=== PATIENT | male | born 1975 | race Caucasian/White ===

== ENCOUNTER 2024-03-06 11:17 | Emergency (ER) | payer BC, SELFPAY ==
[2024-03-06 11:34] VITALS: BP 129/81
[2024-03-06 12:04] LABS: % Basophils 0.2 % (0-2); % Eosinophils 0.2 % (0-6); % Immature Granulocytes 0.3 % (0-0.5); % Neutrophils 92.3 % (42.2-75.2); Absolute Lymphocytes 0.2 10^3/uL (1.2-3.4); Absolute Monocytes 0.2 10^3/uL (0.1-0.6); Absolute Neutrophils 5.5 10^3/uL (1.4-6.5); Hematocrit 44.4 % (39.0-52.0); Hemoglobin 15.3 g/dL (13.0-18.0); Mean Corp Hgb Conc. 34.5 g/dL (33.0-37.0); Mean Corpuscular Volume 92.9 fL (80.0-94.0); Mean Platelet Volume 10.7 fL (7.4-10.4); Nucleated Red Blood Cells % 0 % (-); Platelet Count 165 10^3/uL (130-400); Red Blood Cell Count 4.78 10^6/uL (4.70-6.10)
[2024-03-06 12:19] LABS: ALT (SGPT) 37 U/L (0-50); AST (SGOT) 56 U/L (17-59); Albumin 4.8 g/dl (3.5-5.0); Alkaline Phosphatase 56 U/L (38-126); Blood Urea Nitrogen 17 mg/dl (9-20); Calcium 9.5 mg/dl (8.4-10.2); Carbon Dioxide 19 mmol/L (22-30); Chloride 106 mmol/L (98-107); Glucose 154 mg/dl (70-99); Potassium 4.2 mmol/L (3.5-5.1); Sodium 137 mmol/L (135-145); Total Bilirubin 0.5 mg/dl (0.2-1.3); Total Protein 7.7 g/dl (6.3-8.2); eGFR > 60.00
--- NOTE | 2024-03-06 13:58 | ED.GENMED ---
History of Present Illness
General
Chief Complaint: Fever
Time Seen by Provider: 03/06/24 13:58
History of Present Illness
History of Present Illness:
TIME OF INITIAL ENCOUNTER:
HPI: Patient presents with diarrhea since 1 AM. He threw up a couple times this morning�his main symptom has been the diarrhea. This is not associated with abdominal pain but does report diffuse abdominal cramping. He is otherwise healthy. He
does not report any sick contacts or anybody with C. difficile. Low-grade temperature as well.
EXAM:
GENERAL: Well appearing in no distress
HEENT: Moist oral mucosa
CARDIOVASCULAR: No murmurs, normal heart rate (96 on my initial evaluation), regular rhythm, No chest wall tenderness
PULMONARY: No respiratory distress, breath sounds are clear and equal
ABDOMEN: Soft with no peritoneal signs, minimal if any diffuse abdominal tenderness
NEUROLOGIC: Excellent strength all extremities, no coordination deficits
PSYCHIATRIC: Appropriate mental status, normal insight and judgement
EXTREMITIES: Nontender, no edema, moves all extremities equally
SKIN: No rash, no lesions
NUMBER AND COMPLEXITY OF PROBLEMS ADDRESSED AT THE ENCOUNTER
� Chronic conditions affecting care: No significant past medical history
� Acute Exacerbation and/or Progression of Chronic Illness: This is an acute problem
� Differential Diagnosis includes: Foodborne illness, gastroenteritis, inflammatory bowel disease
AMOUNT AND/OR COMPLEXITY OF DATA TO BE REVIEWED AND ANALYZED
� I performed an independent evaluation of and my interpretation is:
EKG:
CT:
X-rays:
Laboratory Studies: White count is normal, hemoglobin normal, bicarb slightly low at 19, creatinine normal. Norovirus positive, C. difficile negative.
Other:
� Review of other/old records: No old records available for review
� Clinical information was obtained by an independent historian: None needed
� Prescriptions/Medications Considered but not given:
� Further testing considered but not performed:
RISK OF COMPLICATIONS AND/OR MORBIDITY OR MORTALITY OF PATIENT MANAGEMENT
� Social determinants of health affecting care: The patient works as an oncologist at [employer]
� Discussion with other providers:
� Escalation of care including admission/observation vs risk of discharge considered: The patient arrived with slight temperature elevation and was tachycardic upon initial evaluation. Even before fluids were started, his heart
rate went from 1 25-96. He does have some crampy feeling�will try Toradol he does not have any particular tenderness.
ANY OTHER UPDATES:
4:15 PM: I reassessed patient. Overall feels improved. However he has not had much urine output. I have ordered a third liter of fluid.
5:30 PM: The patient is positive for norovirus. Well-appearing currently. Planning discharge.
Phy Exam
Physical Exam
Physical Exam:
See HPI
Sepsis
Sepsis Screening
Sepsis Assessment: Sepsis Ruled Out
Sepsis Screen
Sepsis Screen: Sepsis Ruled Out
Date: 03/06/24
Time: 17:28
Course
Orders/Labs/Results
Orders:
Orders
03/06/24 11:44
Complete Blood Count/With Diff Urgent
Comprehensive Metabolic Panel Urgent
C difficile Antigen & Toxins Urgent
[facility] Source: ST
Specimen Description:
Date Specimen was Collected: 03/06/24
Time Specimen was Collected: 11:37
Norovirus by PCR Urgent
[facility] Source: ST
Specimen Description:
Date Specimen was Collected: 03/06/24
Time Specimen was Collected: 11:37
Stool Culture Urgent
[facility] Source: Feces/Stool
Specimen Description:
Date Specimen was Collected: 03/06/24
Time Specimen was Collected: 11:37
03/06/24 13:59
0.9% Sodium Chloride 1000 ml [Nss] 1,000 ml IV BOLUS
03/06/24 14:00
Add On- LAB Urgent
Tests Added?: norovirus
03/06/24 14:08
Add On- LAB Urgent
Tests Added?: c diff stool
0.9% Sodium Chloride 1000 ml [Nss] 1,000 ml IV BOLUS
Ketorolac [Toradol] 15 mg IV NOW STA
Ondansetron Injectable [Zofran] 4 mg IV NOW STA
03/06/24 16:25
0.9% Sodium Chloride 1000 ml [Nss] 1,000 ml IV BOLUS
Abnormal Lab Results
03/06/24
11:44
MCH 32.0 H pg
(27.0-31.0)
MPV 10.7 H fL
(7.4-10.4)
Absolute Lymphs (auto) 0.2 L 10^3/uL
(1.2-3.4)
Neutrophils % 92.3 H %
(42.2-75.2)
Lymphocytes % 4.0 L %
(20.5-51.1)
Carbon Dioxide 19 L mmol/L
(22-30)
Glucose 154 H mg/dl
(70-99)
03/06/24 11:44
03/06/24 11:44
Vital Signs
Pulse: 96
Initial and Last Documented VS:
Initial Vital Signs
Temp Pulse Resp BP Pulse Ox
37.5 C 125 20 129/81 98
03/06/24 11:34 03/06/24 11:34 03/06/24 11:34 03/06/24 11:34 03/06/24 11:34
Last Documented Vital Signs
Temp Pulse Resp BP Pulse Ox
36.9 C 79 16 116/72 100
03/06/24 14:19 03/06/24 16:43 03/06/24 16:43 03/06/24 16:43 03/06/24 16:43
*Critical Care Note
Total Time (30-74mins, 75-104mins- exclusive of procedures): Not Applicable
ED Attending Note
-
Portions of this chart may have been created with voice recognition software.� Occasional wrong word or��sound alike� substitutions may have occurred due to the inherent limitations of voice recognition software.
Discharge Plan
Departure
Patient Disposition: Home (Routine Discharge)
Date of Disposition: 03/06/24
Time of Disposition: 16:25
Patient with high blood pressure during this ER visit?: Yes
Discharge Problem:
Diarrhea
Referrals:
KIRSTEN, LIBAN [Other]
Activity Restrictions/Additional Instructions:
Basic blood work is unremarkable. Your white blood cell count is 6.0, hemoglobin is 15.3, bicarb is slightly low at 19 and you were given nearly 3 L of fluid. Your creatinine was 1.1. Glucose is 154. C. difficile test is negative. Norovirus and
stool cultures are still pending.
Interventions
Interventions:
*Risk Screen - Suicide Last Done: 03/06/24 11:34
*General Assessment Last Done: 03/06/24 14:22
ED- Fall Risk Assessment Last Done: 03/06/24 14:22
*ED COVID-19 Vaccine History Last Done: 03/06/24 14:22
ED- Neurological Assessment Last Done: 03/06/24 14:22
ED-Skin Assessment Last Done: 03/06/24 14:22
Discharge Date and Time
Print Language: BULGARIAN
[2024-03-06] MEDS: NSS 1000 IV ×3 (14:15→16:27)
[2024-03-06 14:19] VITALS: BP 118/72
[2024-03-06] MEDS: ZOFRAN 4 MG IV (14:34)
[2024-03-06] MEDS: TORADOL 15 MG IV (14:34)
--- NOTE | 2024-03-06 16:35 | EDRN ---
Pt is pre-discharged pending the completion of ordered bag #3 of NSS bolus infusing at this time.
[2024-03-06 16:43] VITALS: BP 116/72
[2024-03-06 16:44] VITALS: BMI 32.9
== END 2024-03-06 17:34 | disposition home or self-care (01) ==
LOC: EMR 11:17
PROVIDERS: Student in an Organized Health Care Education/Training Program; EMERGENCY PHYSICIAN Emergency Medicine
DX: R19.7 Diarrhea, unspecified (principal); R03.0 Elevated blood-pressure reading, without diagnosis of hypertension
CPT/HCPCS: 99284; 96374; 96375; 96361 ×3; 80053; 85025; 87045; 87046; 87077; 87324; 87427; 87449; 87798